=== PATIENT | male | born 1950 | race Caucasian/White ===

== ENCOUNTER 2019-11-02 14:48 | Inpatient (IN) ==
[2019-11-06] MEDS: Acetaminophen 325 MG TABLET PO PRN (22:22)
[2019-11-06] MEDS: Levalbuterol Neb 1.25 MG/3 ML IH SCH (23:56)
[2019-11-07] MEDS: Levalbuterol Neb 1.25 MG/3 ML IH SCH ×5 (00:52→21:49)
[2019-11-07] MEDS: *HR* OxyCODONE Immed Rel 5 MG TABLET PO PRN ×2 (04:13→21:36)
[2019-11-07] MEDS: Cholecalciferol (D-3) 1,000 UNIT (25MCG) TABLET PO SCH (08:46)
[2019-11-07] MEDS: Gabapentin 400 MG CAPSULE PO SCH ×3 (08:46→21:36)
[2019-11-07] MEDS: *HR* Rivaroxaban 10 MG TABLET PO SCH (08:47)
[2019-11-07] MEDS ORDERED: lisinopriL 10 MG TABLET PO SCH (09:00)
[2019-11-07] MEDS ORDERED: Furosemide 20 MG TABLET PO SCH (09:00)
[2019-11-07] MEDS: Ondansetron ODT 4 MG TAB.RAPDIS PO PRN ×2 (11:05→17:00)
[2019-11-07] MEDS: Furosemide 20 MG TABLET PO SCH (16:59)
[2019-11-07] MEDS: traZODone 50 MG TABLET PO SCH (21:37)
[2019-11-08] MEDS: Levalbuterol Neb 1.25 MG/3 ML IH SCH ×4 (04:21→22:05)
[2019-11-08 06:44] LABS: Hematocrit 28.8 % (37.5-50.1); Hemoglobin 9.5 g/dL (12.9-16.9); Mean Corpuscular Hemoglobin 30.8 pg (28.0-33.3); Mean Corpuscular Volume 93.5 fL (83.0-100.0); Mean Platelet Volume 10.3 fL (9.4-12.4); Platelet Count 295 K/mcL (140-400); Red Blood Count 3.08 M/mcL (4.19-5.50); Red Cell Distribution Width 16.6 % (11.5-14.5); White Blood Count 7.9 K/mcL (4.3-11.1)
[2019-11-08 07:02] LABS: BUN/Creatinine Ratio 9 (6-26); Blood Urea Nitrogen 7 mg/dL (8-23); Calcium 8.1 mg/dL (8.6-10.3); Carbon Dioxide 31 mEq/L (23-29); Chloride 101 mEq/L (98-107); Glucose 103 mg/dL (70-105); Osmolality,Calculated 286 (280-300); Potassium 3.4 mEq/L (3.5-5.1); Sodium 139 mEq/L (136-145); eGFR For African Americans > 60 (> 60); eGFR For Non-African Americans > 60 (> 60)
[2019-11-08] MEDS: lisinopriL 5 MG TABLET PO SCH (08:52)
[2019-11-08] MEDS: *HR* Rivaroxaban 10 MG TABLET PO SCH (08:54)
[2019-11-08] MEDS: Cholecalciferol (D-3) 1,000 UNIT (25MCG) TABLET PO SCH (08:54)
[2019-11-08] MEDS: Furosemide 20 MG TABLET PO SCH ×2 (08:54→16:45)
[2019-11-08] MEDS: Gabapentin 400 MG CAPSULE PO SCH ×3 (08:54→19:27)
[2019-11-08] MEDS: Acetaminophen 325 MG TABLET PO PRN (19:27)
[2019-11-08] MEDS: traZODone 50 MG TABLET PO SCH (19:27)
[2019-11-09] MEDS: Levalbuterol Neb 1.25 MG/3 ML IH SCH ×4 (04:14→21:50)
[2019-11-09] MEDS: *HR* OxyCODONE Immed Rel 5 MG TABLET PO PRN ×2 (04:27→21:09)
[2019-11-09] MEDS: *HR* Rivaroxaban 10 MG TABLET PO SCH (08:54)
[2019-11-09] MEDS: Furosemide 20 MG TABLET PO SCH ×2 (08:54→18:04)
[2019-11-09] MEDS: lisinopriL 5 MG TABLET PO SCH (08:54)
[2019-11-09] MEDS: Cholecalciferol (D-3) 1,000 UNIT (25MCG) TABLET PO SCH (08:55)
[2019-11-09] MEDS: Gabapentin 400 MG CAPSULE PO SCH ×3 (08:55→20:59)
[2019-11-09] MEDS: traZODone 50 MG TABLET PO SCH (20:59)
[2019-11-10] MEDS: Levalbuterol Neb 1.25 MG/3 ML IH SCH ×4 (03:45→22:11)
[2019-11-10 05:48] LABS: Hematocrit 29.9 % (37.5-50.1); Hemoglobin 9.9 g/dL (12.9-16.9); Mean Corpuscular HGB Conc 33.1 g/dL (31.6-35.5); Mean Corpuscular Hemoglobin 30.9 pg (28.0-33.3); Mean Corpuscular Volume 93.4 fL (83.0-100.0); Mean Platelet Volume 10.1 fL (9.4-12.4); Platelet Count 334 K/mcL (140-400); Red Cell Distribution Width 16.5 % (11.5-14.5)
[2019-11-10 06:08] LABS: Alanine Aminotransferase 18 Units/L (7-52); Albumin 2.7 g/dL (3.5-5.7); Albumin/Globulin Ratio 1.1 (1.1-2.2); Alkaline Phosphatase 103 Units/L (34-104); Aspartate Amino Transferase 18 Units/L (13-39); BUN/Creatinine Ratio 8 (6-26); Bilirubin,Total 0.5 mg/dL (0.3-1.0); Blood Urea Nitrogen 7 mg/dL (8-23); Calcium 8.1 mg/dL (8.6-10.3); Carbon Dioxide 30 mEq/L (23-29); Chloride 101 mEq/L (98-107); Globulin 2.4 g/dL (2.4-3.5); Glucose 104 mg/dL (70-105); Magnesium 1.7 mg/dL (1.6-2.6); Osmolality,Calculated 284 (280-300); Potassium 3.7 mEq/L (3.5-5.1); Sodium 138 mEq/L (136-145); Total Protein 5.1 g/dL (6.4-8.9); eGFR For African Americans > 60 (> 60); eGFR For Non-African Americans > 60 (> 60)
[2019-11-10] MEDS: Furosemide 20 MG TABLET PO SCH ×2 (09:44→17:12)
[2019-11-10] MEDS: Gabapentin 400 MG CAPSULE PO SCH ×3 (09:44→20:22)
[2019-11-10] MEDS: *HR* Rivaroxaban 10 MG TABLET PO SCH (09:44)
[2019-11-10] MEDS: lisinopriL 5 MG TABLET PO SCH (09:45)
[2019-11-10] MEDS: Cholecalciferol (D-3) 1,000 UNIT (25MCG) TABLET PO SCH (09:46)
[2019-11-10] MEDS: traZODone 50 MG TABLET PO SCH (20:22)
[2019-11-10] MEDS: *HR* OxyCODONE Immed Rel 5 MG TABLET PO PRN (22:43)
[2019-11-11] MEDS: Levalbuterol Neb 1.25 MG/3 ML IH SCH ×2 (04:07→09:16)
[2019-11-11] MEDS: Gabapentin 400 MG CAPSULE PO SCH ×3 (08:35→21:48)
[2019-11-11] MEDS: lisinopriL 5 MG TABLET PO SCH (08:36)
[2019-11-11] MEDS: *HR* Rivaroxaban 10 MG TABLET PO SCH (08:36)
[2019-11-11] MEDS: Furosemide 20 MG TABLET PO SCH ×2 (08:36→17:44)
[2019-11-11] MEDS: Cholecalciferol (D-3) 1,000 UNIT (25MCG) TABLET PO SCH (08:37)
[2019-11-11] MEDS: traZODone 50 MG TABLET PO SCH (21:48)
[2019-11-11] MEDS: *HR* OxyCODONE Immed Rel 5 MG TABLET PO PRN (21:52)
[2019-11-11] MEDS: Levalbuterol Neb 1.25 MG/3 ML IH PRN (22:14)
[2019-11-12] MEDS: Cholecalciferol (D-3) 1,000 UNIT (25MCG) TABLET PO SCH (08:49)
[2019-11-12] MEDS: Furosemide 20 MG TABLET PO SCH ×2 (08:49→16:08)
[2019-11-12] MEDS: lisinopriL 5 MG TABLET PO SCH (08:49)
[2019-11-12] MEDS: *HR* Rivaroxaban 10 MG TABLET PO SCH (08:49)
[2019-11-12] MEDS: Gabapentin 400 MG CAPSULE PO SCH ×3 (08:49→20:59)
[2019-11-12] MEDS: Simethicone 80 MG TAB.CHEW PO PRN (17:33)
[2019-11-12] MEDS: traZODone 50 MG TABLET PO SCH (20:59)
[2019-11-12] MEDS: *HR* OxyCODONE Immed Rel 5 MG TABLET PO PRN (21:02)
[2019-11-13] MEDS: Furosemide 20 MG TABLET PO SCH ×2 (08:14→16:21)
[2019-11-13] MEDS: *HR* Rivaroxaban 10 MG TABLET PO SCH (08:14)
[2019-11-13] MEDS: Gabapentin 400 MG CAPSULE PO SCH ×3 (08:14→20:19)
[2019-11-13] MEDS: Cholecalciferol (D-3) 1,000 UNIT (25MCG) TABLET PO SCH (08:15)
[2019-11-13] MEDS: lisinopriL 5 MG TABLET PO SCH (08:15)
[2019-11-13] MEDS: Simethicone 80 MG TAB.CHEW PO PRN ×2 (08:15→16:21)
[2019-11-13] MEDS: Levalbuterol Neb 1.25 MG/3 ML IH PRN (19:41)
[2019-11-13] MEDS: *HR* OxyCODONE Immed Rel 5 MG TABLET PO PRN (20:18)
[2019-11-13] MEDS: traZODone 50 MG TABLET PO SCH (20:19)
[2019-11-14] MEDS: Gabapentin 400 MG CAPSULE PO SCH ×3 (08:10→20:52)
[2019-11-14] MEDS: Cholecalciferol (D-3) 1,000 UNIT (25MCG) TABLET PO SCH (08:10)
[2019-11-14] MEDS: lisinopriL 5 MG TABLET PO SCH (08:10)
[2019-11-14] MEDS: *HR* Rivaroxaban 10 MG TABLET PO SCH (08:10)
[2019-11-14] MEDS: Furosemide 20 MG TABLET PO SCH ×2 (08:11→16:48)
[2019-11-14] MEDS: Simethicone 80 MG TAB.CHEW PO PRN ×3 (08:13→16:48)
[2019-11-14] MEDS: traZODone 50 MG TABLET PO SCH (20:52)
[2019-11-15] MEDS: *HR* Rivaroxaban 10 MG TABLET PO SCH (09:29)
[2019-11-15] MEDS: Gabapentin 400 MG CAPSULE PO SCH ×3 (09:30→20:23)
[2019-11-15] MEDS: Furosemide 20 MG TABLET PO SCH ×2 (09:30→15:43)
[2019-11-15] MEDS: lisinopriL 5 MG TABLET PO SCH (09:30)
[2019-11-15] MEDS: Cholecalciferol (D-3) 1,000 UNIT (25MCG) TABLET PO SCH (09:36)
[2019-11-15] MEDS: Simethicone 80 MG TAB.CHEW PO PRN ×3 (09:48→15:46)
[2019-11-15] MEDS: Nystatin POWDER 30 GM BOTTLE TP SCH ×2 (11:47→20:27)
[2019-11-15] MEDS: traZODone 50 MG TABLET PO SCH (20:24)
[2019-11-15] MEDS: *HR* OxyCODONE Immed Rel 5 MG TABLET PO PRN (20:25)
[2019-11-16] MEDS: Cholecalciferol (D-3) 1,000 UNIT (25MCG) TABLET PO SCH (08:02)
[2019-11-16] MEDS: *HR* Rivaroxaban 10 MG TABLET PO SCH (08:02)
[2019-11-16] MEDS: Gabapentin 400 MG CAPSULE PO SCH (08:02)
[2019-11-16] MEDS: lisinopriL 5 MG TABLET PO SCH (08:03)
[2019-11-16] MEDS: Furosemide 20 MG TABLET PO SCH (08:03)
[2019-11-16 08:04] VITALS: BP 102/61
[2019-11-16] MEDS: Nystatin POWDER 30 GM BOTTLE TP SCH (08:04)
[2019-11-16] MEDS: Simethicone 80 MG TAB.CHEW PO PRN (08:12)
== END 2019-11-16 11:25 | disposition home health service (06) | DRG 949 ==
LOC: SUATTDRO 11-06 20:24 → INPPIK 11-06 20:24
PROVIDERS: ADMIT Internal Medicine; ATTEND Family Medicine